=== PATIENT | female | born 1945 | race Caucasian/White ===

== ENCOUNTER 2017-10-15 11:16 | Emergency (ER) | payer OTHER ==
[~2017-10-15] VITALS: Ht 154.9 cm; Wt 66.4 kg
[2017-10-15 11:31] VITALS: Ht 154.9 cm; Wt 66.4 kg
[2017-10-15 13:00] VITALS: BP 170/82
== END 2017-10-15 13:20 | disposition home or self-care (01) ==
LOC: ED 11:16
DX: E11.40 Type 2 diabetes mellitus with diabetic neuropathy, unspecified (principal); I25.10 Atherosclerotic heart disease of native coronary artery without angina pectoris; E78.00 Pure hypercholesterolemia, unspecified; K64.9 Unspecified hemorrhoids; H90.5 Unspecified sensorineural hearing loss; Z79.4 Long term (current) use of insulin; Z88.0 Allergy status to penicillin

== ENCOUNTER 2018-04-26 14:40 | Emergency (ER) | payer OTHER ==
[~2018-04-26] VITALS: Ht 165.1 cm; Wt 63.0 kg
[2018-04-26 14:48] VITALS: Ht 165.1 cm; Wt 63.0 kg
[2018-04-26 16:43] LABS: BASOPHIL % 0.5 % (0-2); PLATELET COUNT 281 x10^3mcL (130-400)
[2018-04-26 16:49] LABS: CALCIUM 9.6 mg/dL (8.5-10.1); CARBON DIOXIDE 26.7 mmol/L (21-32); CHLORIDE SERUM 103 mmol/L (98-107); CREATININE SERUM 1.4 mg/dL (0.6-1.0); GLUCOSE SERUM 181 mg/dL (74-106); POTASSIUM SERUM 4.3 mmol/L (3.5-5.1); SODIUM SERUM 137 mmol/L (136-145)
[2018-04-26 16:54] LABS: ALBUMIN 4.1 g/dL (3.4-5.0); ALKALINE PHOSPHATASE 71 U/L (46-116); ALT/SGPT 27 U/L (14-59); AMYLASE 38 U/L (25-115); AST/SGOT 32 U/L (15-37); BILIRUBIN TOTAL 0.39 mg/dL (0.20-1.00); LIPASE 100 IU/L (73-393); TOTAL PROTEIN, SERUM 7.8 g/dL (6.4-8.2)
[2018-04-26 21:32] LABS: UA SPECIFIC GRAVITY <=1.005 (1.005-1.035); microscopic required? YES; urine erythrocyte NEGATIVE (NEGATIVE)
[2018-04-26 23:46] VITALS: BP 141/75
== END 2018-04-26 23:46 | disposition home or self-care (01) ==
LOC: ED 14:40
PROVIDERS: Emergency Medicine Emergency Medical Services
PROC: BW211ZZ Computerized Tomography (CT Scan) of Abdomen and Pelvis using Low Osmolar Contrast (ICD-10-PCS; principal; 2018-04-26)
DX: R10.32 Left lower quadrant pain (principal); E11.9 Type 2 diabetes mellitus without complications; E78.00 Pure hypercholesterolemia, unspecified; K64.9 Unspecified hemorrhoids; I25.2 Old myocardial infarction
CPT/HCPCS: 83880; Q9967

== ENCOUNTER 2019-11-08 09:22 | Emergency (ER) | payer OTHER ==
[~2019-11-08] VITALS: Ht 152.4 cm; Wt 65.3 kg
[2019-11-08 09:35] VITALS: BP 153/72; Ht 152.4 cm; Wt 65.3 kg
== END 2019-11-08 13:30 | disposition home or self-care (01) ==
LOC: ED 09:22
DX: S32.028A Other fracture of second lumbar vertebra, initial encounter for closed fracture (principal); S20.212A Contusion of left front wall of thorax, initial encounter; S30.0XXA Contusion of lower back and pelvis, initial encounter; E11.9 Type 2 diabetes mellitus without complications; E78.00 Pure hypercholesterolemia, unspecified; Z88.0 Allergy status to penicillin; W07.XXXA Fall from chair, initial encounter; Y93.89 Activity, other specified; Y92.89 Other specified places as the place of occurrence of the external cause; Y99.8 Other external cause status